=== PATIENT | female | born 1995 | race Caucasian/White ===

== ENCOUNTER 2018-11-05 15:53 | Emergency (ER) | payer SELFPAY ==
[~2018-11-05] VITALS: Ht 162.6 cm; Wt 81.8 kg
[2018-11-05] MEDS ORDERED: PERTUSS(ACELL),DIPH,TET VAC/PF 0.5 ML VIAL IM ONE (17:45)
[2018-11-05] MEDS ORDERED: BACITRACIN 0.9 GM PACKET OINTMENT TP ONE (18:00)
[2018-11-05 18:25] VITALS: BP 130/70
== END 2018-11-05 18:49 | disposition home or self-care (01) ==
LOC: EMS 15:56
DX: S01.01XA Laceration without foreign body of scalp, initial encounter (principal); V00.131A Fall from skateboard, initial encounter; Y93.89 Activity, other specified; Y92.89 Other specified places as the place of occurrence of the external cause; Y99.8 Other external cause status
CPT/HCPCS: 90471; 90715